=== PATIENT | male | born 1960 | race African-American/Black ===

== ENCOUNTER 2020-08-07 10:41 | Emergency (ER) | payer SELFPAY ==
[~2020-08-07] VITALS: Ht 167.6 cm; Wt 70.4 kg
--- NOTE | 2020-08-07 11:32 | PHYS DOC ---
Past Medical History Past Medical History: Hypertension Past Surgical History: Other Additional Past Surgical Histo: LEFT ELBOW, LEFT HAND, RIGHT KNEE Smoking Status: Never Smoker Alcohol Use: Occasionally General Adult EDM: Chief Complaint: LOWER EXT PAIN HPI: HPI: 60-year-old AA male past medical history of hypertension presents to the ed with complaints of multiple joint pain, complains of bilateral wrist pain, bilateral shoulder pain and bilateral knee pain that has been chronic for the past 6 months. Does report right thigh swelling that is new. Has been diagnosed with rheumatoid arthritis and cannot recall what medication he was prescribed. Takes amlodipine 5 mg daily for blood pressure. Takes no other routine medications. Denies any blunt trauma or traumatic injury. Denies associated fever, dysuria, hematuria, urethral discharge or new joint swelling. No h/o covid or DVT. Review of Systems: Review of Systems: Constitutional: Denies fever or chills. [] Eyes: Denies change in visual acuity. [] HENT: Denies nasal congestion or sore throat. [] Respiratory: Denies cough or shortness of breath. [] Cardiovascular: Denies chest pain or edema. [] GI: Denies , nausea, vomiting : Denies dysuria or hematuria Musculoskeletal: Denies back pain or cva tenderness Integument: Denies rash or diaphoresis Neurologic: Denies headache, nuchal rigidity, focal weakness or sensory changes. [] Endocrine: Denies polyuria or polydipsia. [] Lymphatic: Denies swollen glands. [] Psychiatric: Denies depression or anxiety. [] Heart Score: C/O Chest Pain: No Risk Factors: Risk Factors: DM, Current or recent (<one month) smoker, HTN, HLP, family history of CAD, obesity. Risk Scores: Score 0 - 3: 2.5% MACE over next 6 weeks - Discharge Home Score 4 - 6: 20.3% MACE over next 6 weeks - Admit for Clinical Observation Score 7 - 10: 72.7% MACE over next 6 weeks - Early Invasive Strategies Allergies: Allergies: Allergies Coded Allergies Type Severity Reaction Last Updated Verified No Known Drug Allergies 08/07/20 No Physical Exam: PE: Constitutional: Well developed, well nourished, no acute distress, non-toxic appearance. HENT: Normocephalic, atraumatic, Eyes: EOMI, conjunctiva normal, no discharge. Neck: Normal range of motion, supple, Cardiovascular: S1/2 present, regular rhythm Lungs & Thorax: Speaking in full sentences, bilateral equal chest rise, no tachypnea or increased work of breathing Abdomen: soft, no tenderness, Skin: Warm, dry, no erythema, no rash. [] Back: No tenderness, no CVA tenderness. [] Extremities: Right thigh enlarged compared to left thigh, right knee with suspected prepatellar bursitis-fluctuant fluid cavity over patella (reports this has been present for the past 6 months), right upper extremities with ulnar deviation, enlarged MCP joints of hands, PT pulses intact, no unilateral calf swelling, shoulders/hips with no swelling or decreased rom, prominent AC joints, knees equal in warmth/no rash Neurologic: Alert and oriented X 3, normal motor function, normal sensory function, no focal deficits noted. [] Psychologic: Affect normal, judgement normal, mood normal. [] Current Patient Data: Vital Signs: Vital Signs Date Time Temp Pulse Resp B/P (MAP) Pulse Ox O2 Delivery O2 Flow Rate FiO2 08/07/20 11:04 97.9 88 22 156/100 (118) 97 Room Air 97.9 EKG: EKG: [] Radiology/Procedures: Radiology/Procedures: IMAGING REPORT Signed PATIENT: MARIAH ANGUIANO ACCOUNT: [id number] : 1960 LOCATION: ER AGE: 60 SEX: M EXAM STATUS: REG ER ORD. PHYSICIAN: CRAIG CAUSEY DO REASON: right thigh swelling, r/o dvt PROCEDURE: VENOUS LOWER EXTREMITY RIGHT Site ID: [id number] EXAMINATION: Right lower extremity duplex venous ultrasound. TECHNIQUE: DVT protocol. Multiple sonographic images with color Doppler and waveform interrogation were performed of the right lower extremity veins with c ompression and augmentation maneuvers. INDICATION: 60 years Male Reason: right thigh swelling. FINDINGS: The right lower extremity veins from the groin to below the knee veins were examined with normal color-flow, compressibility and normal waveform de monstrated. The great saphenous vein visualized portion proximally is patent. There is a large fluid collection anterior to the right knee with internal debris measuring 5.6 x 5.4 x 4.1 cm. etiology is indeterminate. This could be a seroma or related to prior injury. IMPRESSION: No evidence of DVT in the right lower extremity. Fluid collection anterior to the right knee. Electronically signed by: James Aguilar MD (08/07/2020 12:48 PM) [id number] DICTATED and SIGNED BY: JAMES AGUILAR MD DATE: 08/07/20 [id number] 0 Course & Med Decision Making: Course & Med Decision Making Pertinent Labs and Imaging studies reviewed. (See chart for details) Concern for rheumatoid arthritis in the setting of uncontrolled, asymptomatic hypertension. No DVT on right lower extremity venous ultrasound. Suspect prepatellar bursitis of her right knee-bends and flexes with no distress. Has an antalgic gait likely related to chronic arthritis. No evidence of end organ damage on labs, normal renal function. Uric acid within normal limits. Leg swelling could be related to Norvasc. Will discharge home with strict ED return precautions were given for worsening leg swelling, neurologic deficits, fever, worsening joint swelling or joint injury. Encouraged urgent outpatient follow-up with PMD and orthopedic surgery. Life-threatening processes were considered but are low suspicion at this time, given history, physical exam and ED workup. Pt was educated on all prescription medications and adverse effects. All patient's questions were answered and pt was stable at time of discharge. Life/limb-threatening differential includes but is not limited to, trauma (fracture, dislocation, laceration, compartment syndrome, tendon or ligament injury), neurovascular injury or deficitcva/tia, infection (osteomyelitis, abscess, cellulitis, septic arthritis, necrotizing fasciitis), deep vein thrombosis, renal/cardiac/liver disease, medication adverse effect, lymphedema/anasarca, vascular insufficiency or malignancy, I spoken with the patient and her caregivers. I explained the patient's condition, diagnoses and treatment plan based on the information available to me at this time. I have answered the patient and her caregiver's questions and addressed any concerns. The patient and her caregivers have a good understanding of patient's diagnosis, condition and treatment plan as can be expected at this point. Vital signs have been stable. Patient's condition is stable and appropriate for discharge from the emergency department. Patient will pursue further outpatient evaluation with primary care physician or other designated or consulting physician as outlined in the discharge instructions. The patient and/or caregivers are agreeable to this plan of care and follow-up instructions have been explained in detail. The patient and/or caregivers have received these instructions in written form and have expressed an understanding of the discharge instructions. The patient and/or caregivers are aware that any significant change of condition or worsening of symptoms should prompt immediate return to this or the closest emergency department or call to 911. Silvia Disclaimer: Silvia Disclaimer: This electronic medical record was generated, in whole or in part, using a voice recognition dictation system. Departure Departure Impression: Primary Impression: Swelling of right lower extremity Additional Impressions: Uncontrolled hypertension Arthritis involving multiple sites Disposition: HOME / SELF CARE / HOMELESS Condition: STABLE Referrals: NO PCP (PCP) Follow-up with your primary care physician in 24 to 48 hours OR FOLLOW UP WITH FAMILY MEDICINE: [address] [facility] [place] [address] Patient Instructions: Hypertension, Peripheral Edema, Rheumatoid Arthritis Additional Instructions: FOLLOWUP WITH PCP TO REPEAT BLOOD PRESSURE AND CONSIDER REPEAT LEFT LEG DVT STUDY FOLLOW UP WITH ORTHOPEDICS: FOR DEFINITIVE MANAGEMENT Orthopaedic Sports Medicine Orthopaedic Surgery [facility] [address] [facility], [facility] [address] [place] [address] OR [facility] [address], [place] [address] EMERGENCY DEPARTMENT GENERAL DISCHARGE INSTRUCTIONS Thank you for coming to [facility] Emergency Department (ED) today and trusting us with you care. We trust that you had a positive experience in our Emergency Department. If you wish to speak to the department management, you may call the Director at [phone]. YOUR FOLLOW UP INSTRUCTIONS ARE FOLLOWS: 1. Do you have a private Doctor? If you do not have a private doctor, please ask for a resource list of physicians or clinics that may be able to assist you with follow up care. 2. The Emergency Physicain has interpreted your x-rays. The X-Ray specialist will also review them. If there is a change in the findings, you will be notified in 48 hours when at all possible. 3. A lab test or culture has been done, your results will be reviewed and you will be notified if you need a change in treatment. ADDITIONAL INSTRUCTIONS AND INFORMATION: 1. Your care today has been supervised by a physician who is specially trained in emergency care. Many problems require more than one evaluation for a complete diagnosis and treatment. We recommend that you schedule your follow up appointment as recommended to ensure complete treatment of you illness or injury. If you are unable to obtain follow up care and continue to have a problem, or if your condition worsens, we recommend that you return to the ED. 2. We are not able to safely determine your condition over the phone nor are we able to give sound medical advice over the phone. For these safety reasons, if you call for medical advice we will ask you to come to the ED for further evaluation. 3. If you have any questions regarding these discharge instructions please call the ED at [phone]. SAFETY INFORMATION: In the interest of safety, wellness, and injury prevention; we encourage you to wear your sealbelt, if you smoke; quite smoking, and we encourage family to use a protective helmet for bicycling and other sporting events that present an increased risk for head injury. IF YOUR SYMPTOMS WORSEN OR NEW SYMPTOMS DEVELOP, OR YOU HAVE CONCERNS ABOUT YOUR CONDITION; OR IF YOUR CONDITION WORSENS WHILE YOU ARE WAITING FOR YOUR FOLLOW UP PHIL OINTMENT; EITHER CONTACT YOUR PRIMARY CARE DOCTOR, THE PHYSICIAN WHOSE NAME AND NUMBER YOU WERE GIVEN, OR RETURN TO THE ED IMMEDIATELY. CRAIG CAUSEY DO Aug 07, 2020 11:32
--- NOTE | 2020-08-07 12:50 | RAD ---
Site ID: [id number] EXAMINATION: Right lower extremity duplex venous ultrasound. TECHNIQUE: DVT protocol. Multiple sonographic images with color Doppler and waveform interrogation we re performed of the right lower extremity veins with compression and augmentation maneuvers. INDICATION: 60 years Male Reason: right thigh swelling. FINDINGS: The right lower extremity veins from the groin to below the knee veins were examined with n ormal color-flow, compressibility and normal waveform demonstrated. The great saphenous vein visualiz ed portion proximally is patent. There is a large fluid collection anterior to the right knee with internal debris measuring 5.6 x 5. 4 x 4.1 cm. etiology is indeterminate. This could be a seroma or related to prior injury. IMPRESSION: No evidence of DVT in the right lower extremity. Fluid collection anterior to the right knee. Electronically signed by: Seth Aguilar MD (08/07/2020 12:48 PM) [id number]
[2020-08-07 14:23] LABS: BASO % 0 % (0-3); EOS # 0.1 x10^3/uL (0.0-0.7); EOS % 1 % (0-3); HEMATOCRIT 39.9 % (39.0-53.0); HEMOGLOBIN 13.1 g/dL (13.0-17.5); LYMPH # 1.1 x10^3/uL (1.0-4.8); LYMPH % 17 % (24-48); MEAN CORPUSCULAR HEMOGLOBIN 32 pg (25-35); MEAN CORPUSCULAR HGB CONC 33 g/dL (31-37); MEAN CORPUSCULAR VOLUME 96 fL (79-100); MONO # 0.7 x10^3/uL (0.0-1.1); MONO % 10 % (0-9); NEUT # 4.5 x10^3/uL (1.8-7.7); NEUT % 71 % (31-73); PLATELET COUNT 194 x10^3/uL (140-400); RED BLOOD COUNT 4.15 x10^6/uL (4.30-5.70); RED CELL DISTRIBUTION WIDTH 15.2 % (11.5-14.5); WHITE BLOOD COUNT 6.4 x10^3/uL (4.0-11.0)
[2020-08-07 14:41] LABS: CALCIUM 8.6 mg/dL (8.5-10.1); GFR 91.9; POTASSIUM 3.3 mmol/L (3.5-5.1)
[2020-08-07 14:46] LABS: ALBUMIN 3.8 g/dL (3.4-5.0); ALBUMIN/GLOBULIN RATIO 0.9 (1.0-1.7); TOTAL BILIRUBIN 0.6 mg/dL (0.2-1.0); TOTAL PROTEIN 8.2 g/dL (6.4-8.2); URIC ACID 6.1 mg/dL (3.5-7.2)
[2020-08-07 17:46] VITALS: BP 136/99
== END 2020-08-07 17:50 | disposition home or self-care (01) ==
LOC: ER 10:41
DX: M19.012 Primary osteoarthritis, left shoulder (principal); M19.011 Primary osteoarthritis, right shoulder; M19.032 Primary osteoarthritis, left wrist; M19.031 Primary osteoarthritis, right wrist; M17.0 Bilateral primary osteoarthritis of knee; R22.41 Localized swelling, mass and lump, right lower limb; I10 Essential (primary) hypertension
CPT/HCPCS: 36415; 80053; 84550; 85025; 93971; 99285-25